=== PATIENT | female | born 1980 | race Caucasian/White ===

== ENCOUNTER → 2018-02-07 | Outpatient (CLI) | payer OTHER ==
[~2018-02-07] MED LIST: ESCI1TAB9 PO; MISCCAP80 PO; OMEG10007 PO; OREGCAP PO; PRENTAB26 PO; [UNRECOGNIZED DRUG - OTHER] PO
== END | disposition home or self-care (01) ==
LOC: C.LAB1850 12:37
PROVIDERS: ATTEND Nurse Practitioner Adult Health
DX: N39.3 Stress incontinence (female) (male) (principal)

== ENCOUNTER → 2018-02-19 | Outpatient (CLI) | payer OTHER ==
--- NOTE | 2018-02-19 15:42 | MAMMOGRAPHY REPORT ---
BILATERAL FIRST EVER DIGITAL DIAGNOSTIC MAMMOGRAM TOMOSYNTHESIS WITH CAD AND LEFT ULTRASOUND: 02/20/20 18 CLINICAL HISTORY: 37-year-old woman presents with a palpable lump less than a quarter size that she h as noticed in the upper outer left breast for approximately 2 months. No skin erythema or nipple disc harge. Family history of breast cancer = maternal grandmother. Patient also has a personal history of prior reduction mammoplasty. Baseline exam. TECHNIQUE: Bilateral CC and MLO 2D and tomosynthesis images were obtained. Current study was also ev aluated with a Computer Aided Detection (CAD) system. COMPARISON: No prior exams were available for comparison. BREAST COMPOSITION: The tissue of both breasts is heterogeneously dense, which may obscure small mass es. FINDINGS: There is evidence of prior bilateral reduction mammoplasty, with linear scar is identified in the 6:00 axes of the breasts and periareolar regions. A triangular palpable marker overlies the u pper outer middle one third of the left breast, denoting the area of palpable lump pointed out by the patient. There is no evidence of a suspicious mass, asymmetry, architectural distortion or calcific ation in the area of palpable concern or elsewhere throughout the remainder of the left breast or wit hin the right breast. Targeted ultrasound was performed in the area of palpable lump pointed out by the patient. On palpat ion, there is an ovoid 1-1/2 cm firm nodular area. Targeted ultrasound performed over this lump in t he 1:00 axis, 4 cm from the nipple demonstrates heterogeneous echotexture breast tissue but no eviden ce of a discrete solid or cystic mass. No focal skin thickening or drainable fluid collection identi fied. IMPRESSION: ACR BI-RADS CATEGORY 2: BENIGN, ULTRASOUND ACR BI-RADS CATEGORY 2: BENIGN 1. No suspicious mammographic or targeted sonographic abnormality or evidence of malignancy in the 1 :00 left breast, in the area of palpable lump pointed out by the patient. Therefore, continued clini damon monitoring and clinical follow-up is recommended, as biopsy of a clinically suspicious mass shoul d not be precluded by negative imaging. 2. Otherwise, no mammographic evidence of malignancy in the breasts. Recommend routine screening ma mmography in 2 years. (02/20/2020) The patient has been verbally notified of the results. Some breast cancers are not detected with mammography. A negative mammographic report should not gerson y biopsy if a clinically suggestive mass is present. Helen Colvin M.D. ay/:02/19/2018 10:20:27 Business Writer: RT Zane(Jammie)(M), [facility]; Minoo Hernandez [facility] letter sent: Normal 1/2 OVERALL STUDY BIRADS: 2 Benign
== END | disposition home or self-care (01) ==
LOC: C.MAMM 09:45
PROVIDERS: ATTEND Nurse Practitioner Adult Health
DX: N63.21 Unspecified lump in the left breast, upper outer quadrant (principal)